=== PATIENT | female | born 1990 | race Caucasian/White ===

== ENCOUNTER 2016-09-24 22:35 | Emergency (ER) | payer MEDICAID ==
[2016-09-24 22:45] VITALS: RESP 18; O2SAT 100
[2016-09-24] MEDS ORDERED: Sodium Chloride 0.9% 1,000 ML IV ONE (23:41)
--- NOTE | 2016-09-24 23:41 | C.PDOC ---
History Of Present Illness Patient complains of headache, worsening over the last 2 days. No f/c/n/v. Dull throbbing ache. No visual changes. Occasionally has some ear discomfort. Time Seen by Provider: 09/24/16 23:38 Chief Complaint (Nursing): Headache History Per: Patient History/Exam Limitations: no limitations Onset/Duration Of Symptoms: Days Current Symptoms Are (Timing): Still Present Severity: Moderate Pain Scale Rating Of: 4 Quality: Dull, Aching Preceeding Symptoms: Known Migraine Symptoms Associated Symptoms: denies: Photophobia, Blurred Vision, Nausea Recent travel outside of the [place]: No Additional History Per: Family Past Medical History Reviewed: Historical Data, Nursing Documentation, Vital Signs Vital Signs: Last Vital Signs Temp 97.9 F 09/24/16 22:42 Pulse 76 09/24/16 22:42 Resp 18 09/24/16 22:42 BP 118/81 09/24/16 22:42 Pulse Ox 100 09/24/16 23:46 - Medical History PMH: Gastritis Surgical History: Denies: Appendectomy Family History: States: No Known Family Hx - Social History Hx Tobacco Use: No Hx Alcohol Use: No Hx Substance Use: No - Immunization History Hx Tetanus Toxoid Vaccination: No Hx Influenza Vaccination: No Hx Pneumococcal Vaccination: No Review Of Systems Constitutional: Negative for: Fever, Chills Eyes: Negative for: Vision Change ENT: Negative for: Throat Pain Cardiovascular: Negative for: Chest Pain, Palpitations Respiratory: Negative for: Shortness of Breath Gastrointestinal: Negative for: Nausea, Vomiting, Abdominal Pain Genitourinary: Negative for: Dysuria Musculoskeletal: Negative for: Back Pain Skin: Negative for: Rash, Lesions, Jaundice, Bruising Neurological: Positive for: Headache. Negative for: Weakness Psych: Negative for: Anxiety Physical Exam - Physical Exam Appears: Non-toxic, No Acute Distress Skin: Warm, Dry Head: Normacephalic Eye(s): bilateral: Normal Inspection, PERRL, EOMI Oral Mucosa: Moist Neck: Trachea Midline, Supple Chest: Symmetrical Cardiovascular: Rhythm Regular Respiratory: No Rales, No Rhonchi, No Wheezing Extremity: Normal ROM Extremity: Bilateral: Atraumatic Neurological/Psych: Oriented x3, Normal Speech, Normal Cognition Gait: Steady ED Course And Treatment - Laboratory Results Result Diagrams: 09/25/16 00:14 09/25/16 00:14 O2 Sat by Pulse Oximetry: 100 Pulse Ox Interpretation: Normal Reevaluation Time: 01:22 Reassessment Condition: Improved Disposition Counseled Patient/Family Regarding: Studies Performed, Diagnosis, Need For Followup, Rx Given - Disposition Referrals: [facility] [Outside] [facility] [Outside] Disposition: HOME/ ROUTINE Disposition Time: 23:41 Condition: FAIR Additional Instructions: May eat during the day if the headache returns Prescriptions: Fluticasone Nasal [Flonase] 1 spr NS DAILY #1 spr Ketorolac Tromethamine [Toradol] 10 mg PO TID PRN #15 tab PRN Reason: Pain, Moderate (4-7) Ondansetron ODT [Zofran ODT] 1 odt PO BID PRN #6 odt PRN Reason: Nausea/Vomiting Instructions: Migraine Headache (ED) - Clinical Impression Clinical Impression: Headache, Migraine
[2016-09-25 00:24] LABS: BASO # 0.1 K/uL (0.0-0.2); BASO % 0.6 % (0.0-2.0); EOS # 0.1 K/uL (0.0-0.7); HEMATOCRIT 39.5 % (34.0-47.0); LYMPH # 2.8 K/uL (1.0-4.3); LYMPH % 27.9 % (20.0-40.0); MEAN CELL VOLUME 82.7 fL (81.0-99.0); MEAN CORPUSCULAR HEMOGLOBIN 28.5 pg (27.0-31.0); MEAN CORPUSCULAR HGB CONC 34.5 g/dL (33.0-37.0); MONO # 0.5 K/uL (0.0-0.8); MONO % 5.3 % (0.0-10.0); RED CELL DISTRIBUTION WIDTH 12.7 % (11.5-14.5); WHITE BLOOD COUNT 10.1 K/uL (4.8-10.8)
[2016-09-25 00:32] LABS: CHLORIDE 100 mmol/L (98-107); POTASSIUM 3.8 mmol/L (3.6-5.2); SODIUM 140 mmol/L (132-148)
[2016-09-25 00:35] LABS: BLOOD UREA NITROGEN 10 mg/dL (7-17); CARBON DIOXIDE 27 mmol/L (22-30); GFR AFRICAN-AMERICAN > 60
[2016-09-25 00:36] LABS: CALCIUM 9.7 mg/dl (8.6-10.4); GLUCOSE,RANDOM 95 mg/dL (65-105)
[2016-09-25 00:47] LABS: RBC URINE < 1 /hpf (0-3); URINE BILIRUBIN NEGATIVE (NEGATIVE); URINE BLOOD NEGATIVE (NEGATIVE); URINE COLOR Yellow (YELLOW); URINE GLUCOSE (UA) NORMAL (Normal); URINE KETONE NEGATIVE (NEGATIVE); URINE LEUKOCYTE ESTERASE NEG Leu/uL (Negative); URINE PROTEIN NEGATIVE (NEGATIVE); URINE UROBILINOGEN NORMAL mg/dL (0.2-1.0); WBC URINE < 1 /hpf (0-5)
[2016-09-25 01:36] VITALS: BP 124/74; PULSE 75; TEMP 98.2
== END 2016-09-25 02:00 | disposition home or self-care (01) ==
LOC: C.ER 22:35
DX: G43.909 Migraine, unspecified, not intractable, without status migrainosus (principal)
CPT/HCPCS: 80048; 81001; 84703; 85025; 96360; 96374; 99284; J1885; J7040

== ENCOUNTER 2017-05-19 21:18 | Emergency (ER) | payer MEDICAID ==
[2017-05-19] MEDS ORDERED: Iodixanol 320 mg/ml 150 ml Bottle IV ONE (22:12)
[2017-05-19 22:20] LABS: BASO % 0.4 % (0.0-2.0); EOS # 0.4 K/uL (0.0-0.7); EOS % 5.1 % (0.0-4.0); HEMOGLOBIN 12.8 g/dL (11.0-16.0); LYMPH # 3.8 K/uL (1.0-4.3); LYMPH % 44.3 % (20.0-40.0); MEAN CELL VOLUME 83.1 fL (81.0-99.0); MEAN CORPUSCULAR HEMOGLOBIN 28.3 pg (27.0-31.0); MEAN PLATELET VOLUME 7.3 fL (7.2-11.7); MONO # 0.5 K/uL (0.0-0.8); MONO % 5.8 % (0.0-10.0); NEUT # 3.9 K/uL (1.8-7.0); NEUT % 44.4 % (50.0-75.0); RBC 4.54 Mil/uL (3.80-5.20); WHITE BLOOD COUNT 8.7 K/uL (4.8-10.8)
[2017-05-19 22:31] LABS: INR 1.1
[2017-05-19 22:32] LABS: HCG,QUALITATIVE URINE NEGATIVE (NEGATIVE); SQUAMOUS EPITHIAL 6 /hpf (0-5); URINE BACTERIA OCC (<OCC); URINE BILIRUBIN NEGATIVE (NEGATIVE); URINE BLOOD NEGATIVE (NEGATIVE); URINE CLARITY Clear (Clear); URINE COLOR Yellow (YELLOW); URINE GLUCOSE (UA) NORMAL (Normal); URINE LEUKOCYTE ESTERASE NEG Leu/uL (Negative); URINE NITRATE NEGATIVE (NEGATIVE); URINE PROTEIN NEGATIVE (NEGATIVE); URINE UROBILINOGEN NORMAL mg/dL (0.2-1.0)
[2017-05-19 22:34] LABS: ALB/GLOB RATIO 1.1 (1.0-2.1); ALBUMIN 4.1 g/dL (3.5-5.0); ALT/SGPT 42 U/L (9-52); AST/SGOT 29 U/L (14-36); BLOOD UREA NITROGEN 10 mg/dL (7-17); GFR AFRICAN-AMERICAN > 60; GFR NON-AFRICAN AMERICAN > 60; LIPASE 128 U/L (23-300)
[2017-05-19] MEDS ORDERED: Morphine 4 MG/ML VIAL ONE (22:35)
[2017-05-19 22:51] VITALS: O2SAT 100
--- NOTE | 2017-05-20 00:15 | CT ---
EXAM: CT Abdomen and Pelvis With Intravenous Contrast CLINICAL HISTORY: 26 years old, female; Pain; Abdominal pain; Prior surgery; Surgery type: Ovary cyst; Patient HX: 02-26-14; Additional info: Rlq pain, R/O appendicitis TECHNIQUE: Axial computed tomography images of the abdomen and pelvis with intravenous contrast. All CT scans at this facility use one or more dose reduction techniques, viz.: automated exposure control; ma/kV adjustment per patient size (including targeted exams where dose is matched to indication; i.e. head); or iterative reconstruction technique. Coronal and sagittal reformatted images were created and reviewed. CONTRAST: 100 mL of [id number] administered intravenously. COMPARISON: CT - ABD PELVIS IV CONTRAST ONLY 2014-02-26 20:19 FINDINGS: Lower thorax: No acute findings. ABDOMEN: Liver: No acute abnormality as visualized. Gallbladder and bile ducts: No acute abnormality as visualized. Pancreas: No acute abnormality as visualized. Spleen: No splenomegaly. Adrenals: No acute abnormality as visualized. Kidneys and ureters: No acute abnormality as visualized. Symmetric emhancement. No hydronephrosis. Stomach and bowel: Limited evaluation without enteric contrast. No definitive focus of mucosal thickening. Appendix: No findings to suggest acute appendicitis. PELVIS: Bladder: No acute abnormality as visualized. Reproductive: Question congenital anomaly of the uterus, arcuate appearance. Endometrial canal appears prominent. Question large fibroid. Cystic appearance to right ovary. Left ovary not clearly identified. ABDOMEN and PELVIS: Intraperitoneal space: No free air. No significant fluid collection. Bones: Degenerative changes. Vasculature: No acute abnormality as visualized. No abdominal aortic aneurysm. Lymph nodes: Shotty nodes. IMPRESSION: Question congenital anomaly of the uterus, arcuate appearance, uterus is deviated to the right. Endometrial canal appears prominent. Question large fibroid. Cystic appearance to right ovary. Left ovary not clearly identified. Followup evaluation with dedicated ultrasound recommended.
--- NOTE | 2017-05-20 00:51 | C.PDOC ---
History Of Present Illness Patient presents to ED c/o constant RLQ pain since yesterday. Pain is nonradiating, and not associated with nausea/vomiting/diarrhea, dysuria/ hematuria, fever. Patient had PMHx of gastritis and . Time Seen by Provider: 05/19/17 21:32 Chief Complaint (Nursing): Abdominal Pain History Per: Patient, Family ( ) History/Exam Limitations: language barrier Onset/Duration Of Symptoms: Days (2) Current Symptoms Are (Timing): Still Present Severity: Moderate Location Of Pain/Discomfort: RLQ Radiation Of Pain To:: None Quality Of Discomfort: "Pain" Associated Symptoms: denies: Fever, Chills, Nausea, Vomiting, Diarrhea, Urinary Symptoms Past Medical History Reviewed: Historical Data, Nursing Documentation, Vital Signs Vital Signs: Last Vital Signs Temp 98.7 F 05/20/17 01:28 Pulse 80 05/20/17 01:28 Resp 18 05/20/17 01:28 BP 119/79 05/20/17 01:28 Pulse Ox 100 05/20/17 01:45 - Medical History PMH: Gastritis Surgical History: Denies: Appendectomy Other Surgeries: Family History: States: No Known Family Hx - Social History Hx Tobacco Use: No Hx Alcohol Use: No Hx Substance Use: No - Immunization History Hx Tetanus Toxoid Vaccination: No Hx Influenza Vaccination: Yes Hx Pneumococcal Vaccination: No Review Of Systems Except As Marked, All Systems Reviewed And Found Negative. Constitutional: Negative for: Fever, Chills Cardiovascular: Negative for: Chest Pain, Palpitations Respiratory: Negative for: Cough, Shortness of Breath Gastrointestinal: Positive for: Abdominal Pain. Negative for: Nausea, Vomiting , Diarrhea Genitourinary: Negative for: Dysuria, Hematuria, Vaginal Discharge, Vaginal Bleeding Skin: Negative for: Rash Physical Exam - Physical Exam Appears: Well, Non-toxic, In Acute Distress (in moderate pain) Eye(s): bilateral: Normal Inspection Oral Mucosa: Moist Cardiovascular: Rhythm Regular Respiratory: Normal Breath Sounds, No Rales, No Rhonchi, No Wheezing Gastrointestinal/Abdominal: Bowel Sounds, Soft, Tenderness ((+) RLQ TTP, (-) Rovsig's, (-) Malloy's), No Distention, No Guarding, No Rebound, Other ( surgical scar at/inferior to umbilicus) Back: Normal Inspection, No CVA Tenderness Neurological/Psych: Oriented x3 ED Course And Treatment - Laboratory Results Result Diagrams: 05/19/17 22:17 05/19/17 22:17 O2 Sat by Pulse Oximetry: 100 (RA) Pulse Ox Interpretation: Normal - CT Scan/US TRANSVAGINAL US Other Rad Studies (CT/US): Read By Radiologist, Radiology Report Reviewed CT/US Interpretation: EXAM: US Pelvis. CLINICAL HISTORY: 26 years old, female ; Pain; Pelvic pain; Additional info: Rlq pain, R/O ovarian torsion. TECHNIQUE : Real-time transabdominal and transvaginal pelvic ultrasound (complete) with image documentation. COMPARISON: No relevant prior studies available. FINDINGS: Uterus/cervix: Congenital uterine anomaly. Question bicornuate uterus. Right endometrial stripe is. thickened, measured at 1.7 cm. Left endometrium is not visualized due to fibroid measured. approximately 4.6 cm in maximal dimension. Right ovary: 4.3 x 1.9 x 3.2 cm. 2 cm right ovarian cyst, irregular appearance, question recent. rupture. Right ovarian Doppler flow noted. Left ovary: Not visualized. Free fluid: Small amount of free fluid in the cul-de-sac. IMPRESSION: Congenital uterine anomaly. Question bicornuate uterus. Right endometrial stripe is thickened,. measured at 1.7 cm. Left endometrium is not visualized due to fibroid measured approximately 4.6. cm in maximal dimension. 2 cm right ovarian cyst, irregular appearance, question recent rupture. Right ovarian Doppler flow. noted. Left ovary not visualized. [facility]. [facility]. Final Radiology Report [id number]. Name: WAQAS GUAMAN Age: 26Years F Date: 05/19/2017. : 1990. Study: US PELVIS COMP NON-OB Requesting Physician: SALOMÓN TORRES. Images: 180. Addl Studies: [id number] - US TRANSVAGINAL NON-OB (1). Provided Clinical History: rlq pain, r/o ovarian torsion. CONFIDENTIALITY STATEMENT. This transmission is confidential and is intended to be a privileged communication. It is intended only for the use of the addressee. Access to this. message by anyone else is unauthorized. If you are not the intended recipient, any disclosure, copying, distribution or any action taken, or omitted to. be taken in reliance on it is prohibited and may be unlawful. If you received this communication in error, please notify us by telephone, so that return. of this document to us can be arranged. Page 2 of 2. MRI can provide more sensitive evaluation of the uterus. Thank you for allowing us to participate in the care of your patient. Dictated and Authenticated by: Halle Lepe MD. 05/20/2017 1:19 AM Eastern Time ([place] & [place]) CT ABD/PELVIS Other Rad Studies (CT/US): Read By Radiologist, Radiology Report Reviewed CT/US Interpretation: EXAM: CT Abdomen and Pelvis With Intravenous Contrast. CLINICAL HISTORY: 26 years old, female; Pain; Abdominal pain; Prior surgery; Surgery type: Ovary cyst; Patient HX: . 3114; Additional info: Rlq pain, R/ O appendicitis. TECHNIQUE: Axial computed tomography images of the abdomen and pelvis with intravenous contrast. All CT. scans at this facility use one or more dose reduction techniques, viz.: automated exposure control;. ma/kV adjustment per patient size (including targeted exams where dose is matched to indication; i.e. head); or iterative reconstruction technique. Coronal and sagittal reformatted images were created and reviewed. CONTRAST: 100 mL of [id number] administered intravenously. COMPARISON: CT - ABD PELVIS IV CONTRAST ONLY 2014-02-26 20:19. FINDINGS: Lower thorax: No acute findings. ABDOMEN: Liver: No acute abnormality as visualized. Gallbladder and bile ducts : No acute abnormality as visualized. Pancreas: No acute abnormality as visualized. Spleen: No splenomegaly. [facility]. [facility]. Final Radiology Report [id number]. Name: WAQAS GUAMAN Age: 26Years F Date: . SSN: [id number] : 1990. Study: CT ABDOMEN/ PELVIS W Requesting Physician: SALOMÓN TORRES. Images : 624. Addl Studies: Provided Clinical History: rlq pain, r/o appendicitis. CONFIDENTIALITY STATEMENT. This transmission is confidential and is intended to be a privileged communication. It is intended only for the use of the addressee. Access to this. message by anyone else is unauthorized. If you are not the intended recipient, any disclosure, copying, distribution or any action taken, or omitted to. be taken in reliance on it is prohibited and may be unlawful. If you received this communication in error, please notify us by telephone, so that return. of this document to us can be arranged. Page 2 of 3. Adrenals: No acute abnormality as visualized. Kidneys and ureters: No acute abnormality as visualized. Symmetric emhancement. No. hydronephrosis. Stomach and bowel: Limited evaluation without enteric contrast. No definitive focus of mucosal. thickening. Appendix: No findings to suggest acute appendicitis. PELVIS: Bladder: No acute abnormality as visualized. Reproductive: Question congenital anomaly of the uterus, arcuate appearance. Endometrial canal. appears prominent. Question large fibroid. Cystic appearance to right ovary. Left ovary not clearly. identified. ABDOMEN and PELVIS: Intraperitoneal space: No free air. No significant fluid collection. Bones: Degenerative changes. Vasculature: No acute abnormality as visualized. No abdominal aortic aneurysm. Lymph nodes: Shotty nodes. IMPRESSION: Question congenital anomaly of the uterus, arcuate appearance, uterus is deviated to the right. Endometrial canal appears prominent. Question large fibroid. Cystic appearance to right ovary. Left. ovary not clearly identified. Followup evaluation with dedicated ultrasound recommended. Thank you for allowing us to participate in the care of your patient. Dictated and Authenticated by: Halle Lepe MD. [facility]. [facility]. Final Radiology Report [id number]. Name: WAQAS GUAMAN Age: 26Years F Date: . SSN: [id number] : 1990. Study: CT ABDOMEN/ PELVIS W Requesting Physician: SALOMÓN TORRES. Images : 624. Addl Studies: Provided Clinical History: rlq pain, r/o appendicitis. CONFIDENTIALITY STATEMENT. This transmission is confidential and is intended to be a privileged communication. It is intended only for the use of the addressee. Access to this. message by anyone else is unauthorized. If you are not the intended recipient, any disclosure, copying, distribution or any action taken, or omitted to. be taken in reliance on it is prohibited and may be unlawful. If you received this communication in error, please notify us by telephone, so that return. of this document to us can be arranged. Page 3 of 3. 05/20/2017 12:15 AM Eastern Time ([place] & [place]) Progress Note: Blood work, UA, CT scan abd/pelvis ordered and reviewed. Patient given IV NS bolus, IV morphine. CT scan shows abnormal uterus/ovary - transvaginal US ordered. Disposition Counseled Patient/Family Regarding: Studies Performed, Diagnosis, Need For Followup, Rx Given - Disposition Referrals: [facility] [Outside] Disposition: HOME/ ROUTINE Disposition Time: 01:50 Condition: STABLE Additional Instructions: FOLLOW UP WITH INFORMATION TECHNOLOGY TEACHER WITHIN 1 WEEK RETURN TO EMERGENCY ROOM IF SYMPTOMS WORSEN Prescriptions: Naproxen [Naprosyn] 1 tab PO BID PRN #25 tab PRN Reason: Pain Instructions: Ovarian Cyst (ED) Forms: [employer] (Tongan) Print Language: LUXEMBOURGER - POA Present On Arrival: None - Clinical Impression Clinical Impression: Ruptured ovarian cyst, Fibroid, uterine
--- NOTE | 2017-05-20 01:19 | US ---
EXAM: US Pelvis CLINICAL HISTORY: 26 years old, female; Pain; Pelvic pain; Additional info: Rlq pain, R/O ovarian torsion TECHNIQUE: Real-time transabdominal and transvaginal pelvic ultrasound (complete) with image documentation. COMPARISON: No relevant prior studies available. FINDINGS: Uterus/cervix: Congenital uterine anomaly. Question bicornuate uterus. Right endometrial stripe is thickened, measured at 1.7 cm. Left endometrium is not visualized due to fibroid measured approximately 4.6 cm in maximal dimension. Right ovary: 4.3 x 1.9 x 3.2 cm. 2 cm right ovarian cyst, irregular appearance, question recent rupture. Right ovarian Doppler flow noted. Left ovary: Not visualized. Free fluid: Small amount of free fluid in the cul-de-sac. IMPRESSION: Congenital uterine anomaly. Question bicornuate uterus. Right endometrial stripe is thickened, measured at 1.7 cm. Left endometrium is not visualized due to fibroid measured approximately 4.6 cm in maximal dimension. 2 cm right ovarian cyst, irregular appearance, question recent rupture. Right ovarian Doppler flow noted. Left ovary not visualized. MRI can provide more sensitive evaluation of the uterus.
[2017-05-20 01:28] VITALS: BP 119/79; PULSE 80; RESP 18; TEMP 98.7
== END 2017-05-20 02:03 | disposition home or self-care (01) ==
LOC: C.ER 21:18
DX: N83.299 Other ovarian cyst, unspecified side (principal); D25.9 Leiomyoma of uterus, unspecified
CPT/HCPCS: 74177; 76830; 76856; 80053; 81001; 83690; 84702; 84703; 85025; 85610; 85730; 86850; 86900; 96374; 96375; 99285; J1885; J2270; Q9967

== ENCOUNTER 2017-06-30 19:48 | Emergency (ER) | payer MEDICAID ==
[2017-06-30] MEDS ORDERED: Sodium Chloride 0.9% 1,000 ML IV ONE (20:05)
--- NOTE | 2017-06-30 20:07 | C.PDOC ---
History Of Present Illness 27 yr old female presents to the ER with complaints of on and off upper abdominal pain for the past 2 weeks which radiates to the right shoulder. Patient states the pain has became worse over the past 24hrs. Patient denies prior history of stones, gallbladder, fever, chills, chest pain, SOB, nausea, vomiting, dysuria, incontinence, weakness or numbness. Patient is currently on her menstrual period. Time Seen by Provider: 06/30/17 20:03 Chief Complaint (Nursing): Fever History Per: Patient History/Exam Limitations: no limitations Onset/Duration Of Symptoms: Intermittent Episodes (2 weeks), Worse Since (24hrs) Current Symptoms Are (Timing): Still Present Past Medical History Reviewed: Historical Data, Nursing Documentation, Vital Signs Vital Signs: Last Vital Signs Temp 100.2 F H 07/01/17 00:10 Pulse 96 H 07/01/17 00:10 Resp 18 07/01/17 00:10 BP 115/80 07/01/17 00:10 Pulse Ox 99 07/01/17 00:26 - Medical History PMH: Gastritis Family History: States: No Known Family Hx Denies: Unknown Family Hx - Social History Hx Tobacco Use: No Hx Alcohol Use: No Hx Substance Use: No - Immunization History Hx Tetanus Toxoid Vaccination: No Hx Influenza Vaccination: Yes Hx Pneumococcal Vaccination: No Review Of Systems Except As Marked, All Systems Reviewed And Found Negative. Constitutional: Negative for: Fever, Chills Cardiovascular: Negative for: Chest Pain Respiratory: Negative for: Shortness of Breath Gastrointestinal: Positive for: Abdominal Pain (upper). Negative for: Nausea, Vomiting Genitourinary: Negative for: Dysuria, Incontinence Neurological: Negative for: Weakness, Numbness Physical Exam - Physical Exam Appears: Non-toxic, No Acute Distress Skin: Warm, Dry Oral Mucosa: Moist Cardiovascular: Rhythm Regular, Other (+ accelerated, resting tachy) Respiratory: Normal Breath Sounds, No Rales, No Rhonchi, No Stridor, No Wheezing Gastrointestinal/Abdominal: Tenderness (RUQ), No Guarding, No Rebound, Other (+ Malloy Signs) Back: CVA Tenderness (R sided) Extremity: Normal ROM, No Swelling Neurological/Psych: Oriented x3, Normal Speech ED Course And Treatment - Laboratory Results Result Diagrams: 06/30/17 20:18 06/30/17 20:18 Lab Interpretation: Abnormal (c/w UTI) O2 Sat by Pulse Oximetry: 99 (RA) Pulse Ox Interpretation: Normal - CT Scan/US US - Abdomen Other Rad Studies (CT/US): Read By Radiologist, Radiology Report Reviewed CT/US Interpretation: EXAM:CT abdomen-c/w pyelonephritis. US Abdomen Limited, Right Upper Quadrant-neg for GB pathology. EXAM DATE/TIME: Exam ordered 2017 8:05 PM. CLINICAL HISTORY: 27 years old, female; Pain; Abdominal pain; Other: Ruq; Additional info: Ruq pain. TECHNIQUE: Real-time ultrasound of the right upper quadrant with image documentation. COMPARISON: CT - ABD PELVIS IV CONTRAST ONLY 2017-05-19 23:01. FINDINGS: Liver: The liver measures 16.5 cm in craniocaudal span. There is normal blood flow direction in the. main portal vein. Normal blood flow is noted within the middle hepatic vein on color Doppler and. pulsed Doppler examination. Gallbladder: Unremarkable. No gallstones. Common bile duct: The common bile duct measures 5 mm. No stones. No dilation. Pancreas: Unremarkable as visualized. Right kidney: Right kidney measures 14.3 x 4.7 x 5.4 cm. No stones. No hydronephrosis. IMPRESSION: No acute findings. CT - Abd & Pelvis Other Rad Studies (CT/US): Read By Radiologist, Radiology Report Reviewed Medical Decision Making Medical Decision Making: IMPRESSION: Acute cholecystitis PLAN: * CT - Abd & Pelvis * US - Abdomen * Labs * Morphine IVP * Zofran IVP * Sodium Chloride IV Disposition - Disposition Referrals: [facility] [Outside] FAMILY PROVIDER,NO [Family Provider] - Disposition: HOME/ ROUTINE Disposition Time: 00:30 Condition: FAIR Prescriptions: Ciprofloxacin HCl [Cipro] 500 mg PO BID #20 tab oxyCODONE/Acetaminophen [Percocet 5/325 mg Tab] 1 ea PO QID PRN #12 tab PRN Reason: Pain, Mild (1-3) Instructions: Kidney Infection Forms: [employer] (Spanish) Print Language: SYRIAC - Clinical Impression Clinical Impression: Urinary tract infection, Pyelonephritis - Scribe Statement The provider has reviewed the documentation as recorded by the Jacquelineibe Paola Oconnor Provider Attestation: All medical record entries made by the Jacquelineibjames were at my direction and personally dictated by me. I have reviewed the chart and agree that the record accurately reflects my personal performance of the history, physical exam, medical decision making, and the department course for this patient. I have also personally directed, reviewed, and agree with the discharge instructions and disposition.
[2017-06-30] MEDS ORDERED: Morphine 4 MG/ML VIAL ONE (20:15)
[2017-06-30] MEDS ORDERED: Sodium Chloride 0.9% 1,000 ML ONE (20:16)
[2017-06-30 20:22] LABS: BASO % 0.2 % (0.0-2.0); EOS % 0.1 % (0.0-4.0); HEMOGLOBIN 12.2 g/dL (11.0-16.0); LYMPH # 1.4 K/uL (1.0-4.3); LYMPH % 12.5 % (20.0-40.0); MEAN CELL VOLUME 81.3 fL (81.0-99.0); MEAN CORPUSCULAR HEMOGLOBIN 28.3 pg (27.0-31.0); MEAN CORPUSCULAR HGB CONC 34.8 g/dL (33.0-37.0); MEAN PLATELET VOLUME 7.2 fL (7.2-11.7); MONO # 0.9 K/uL (0.0-0.8); MONO % 8.2 % (0.0-10.0); NEUT # 8.9 K/uL (1.8-7.0); RBC 4.31 Mil/uL (3.80-5.20); RED CELL DISTRIBUTION WIDTH 12.8 % (11.5-14.5); WHITE BLOOD COUNT 11.3 K/uL (4.8-10.8)
[2017-06-30 20:30] LABS: INR 1.3
[2017-06-30 20:33] LABS: ALB/GLOB RATIO 0.9 (1.0-2.1); ALBUMIN 4.2 g/dL (3.5-5.0); ALT/SGPT 33 U/L (9-52); AST/SGOT 29 U/L (14-36); BLOOD UREA NITROGEN 7 mg/dL (7-17); CALCIUM 9.6 mg/dl (8.6-10.4); GFR AFRICAN-AMERICAN > 60; GFR NON-AFRICAN AMERICAN > 60; LIPASE 69 U/L (23-300)
[2017-06-30 20:35] LABS: PROTHROMBIN TIME 14.7 SECONDS (9.7-12.2)
--- NOTE | 2017-06-30 21:04 | US ---
EXAM: US Abdomen Limited, Right Upper Quadrant EXAM DATE/TIME: Exam ordered 06/30/2017 8:05 PM CLINICAL HISTORY: 27 years old, female; Pain; Abdominal pain; Other: Ruq; Additional info: Ruq pain TECHNIQUE: Real-time ultrasound of the right upper quadrant with image documentation. COMPARISON: CT - ABD PELVIS IV CONTRAST ONLY 2017-05-19 23:01 FINDINGS: Liver: The liver measures 16.5 cm in craniocaudal span. There is normal blood flow direction in the main portal vein. Normal blood flow is noted within the middle hepatic vein on color Doppler and pulsed Doppler examination. Gallbladder: Unremarkable. No gallstones. Common bile duct: The common bile duct measures 5 mm. No stones. No dilation. Pancreas: Unremarkable as visualized. Right kidney: Right kidney measures 14.3 x 4.7 x 5.4 cm. No stones. No hydronephrosis. IMPRESSION: No acute findings.
[2017-06-30] MEDS ORDERED: HYDROmorphone 1 mg/ml ISec IVP STA (21:46)
[2017-06-30 21:52] LABS: SQUAMOUS EPITHIAL 6 /hpf (0-5); URINE BACTERIA MOD (<OCC); URINE BILIRUBIN NEGATIVE (NEGATIVE); URINE BLOOD 3+ (NEGATIVE); URINE CLARITY Hazy (Clear); URINE COLOR Red (YELLOW); URINE GLUCOSE (UA) 1+ mg/dL (Normal); URINE LEUKOCYTE ESTERASE 2+ Leu/uL (Negative); URINE NITRATE NEGATIVE (NEGATIVE); URINE PROTEIN 2+ mg/dL (NEGATIVE); URINE UROBILINOGEN NORMAL mg/dL (0.2-1.0)
[2017-06-30] MEDS ORDERED: HYDROmorphone 1 mg/ml ISec ONE (22:01)
[2017-06-30] MEDS ORDERED: Iodixanol 320 MG/ML 100 ML BOTTLE IV ONE (22:15)
[2017-06-30] MEDS ORDERED: cefTRIAXone IV 1 gm in Dextros 50 ML IVPB ONE (23:48)
[2017-07-01 00:11] VITALS: BP 115/80; PULSE 96; RESP 18; TEMP 100.2
--- NOTE | 2017-07-01 00:13 | CT ---
EXAM: CT Abdomen and Pelvis With Intravenous Contrast CLINICAL HISTORY: 27 years old, female; Pain; Abdominal pain; Generalized TECHNIQUE: Axial computed tomography images of the abdomen and pelvis with intravenous contrast. All CT scans at this facility use one or more dose reduction techniques, viz.: automated exposure control; ma/kV adjustment per patient size (including targeted exams where dose is matched to indication; i.e. head); or iterative reconstruction technique. Coronal and sagittal reformatted images were created and reviewed. CONTRAST: 100 mL of [id number] administered intravenously. COMPARISON: CT - ABD PELVIS IV CONTRAST ONLY 2017-05-19 23:01 FINDINGS: Lower thorax: Minimal atelectasis. ABDOMEN: Liver: Unremarkable. No mass. Gallbladder and bile ducts: No calcified stones. No ductal dilation. Pancreas: Apparent annular pancreas. No ductal dilation. Spleen: No splenomegaly. Adrenals: No mass. Kidneys and ureters: Minimal stranding about RIGHT kidney. Few scattered ill-defined peripheral areas of decreased attenuation within right kidney. No hydronephrosis. Apparent minimal urothelial enhancement of renal pelvis and right ureter. Stomach and bowel: No definite mural thickening. No obstruction. Appendix: Normal caliber. No inflammation. PELVIS: Bladder: Unremarkable. Reproductive: 4.8 x 4.2 x 4.9 cm uterine fundal mass. ABDOMEN and PELVIS: Intraperitoneal space: No significant fluid collection. No free air. Bones/joints: No acute fracture. Soft tissues: Laparotomy scar. Vasculature: Unremarkable. No aneurysm. Lymph nodes: No pathologically enlarged lymph nodes. IMPRESSION: 1. Findings compatible with right pyelonephritis/ureteritis. Correlate with urinalysis to exclude infection. 2. Probable fibroid uterus. 3. Incidental/non-acute findings are described above.
[2017-07-01 00:27] VITALS: O2SAT 99
== END 2017-07-01 00:39 | disposition home or self-care (01) ==
LOC: C.ER 19:48
DX: N39.0 Urinary tract infection, site not specified (principal); N12 Tubulo-interstitial nephritis, not specified as acute or chronic
CPT/HCPCS: 74177; 76705; 80053; 81001; 82948; 83690; 84703; 85025; 85610; 85730; 87040; 96361; 96365; 96375; 99285; J0696; J1170; J2270; J2405; J7040; Q9967

== ENCOUNTER 2018-09-03 22:53 | Emergency (ER) | payer MEDICAID, OTHER ==
[2018-09-03 23:29] VITALS: RESP 20; O2SAT 100
[2018-09-03] MEDS ORDERED: Sodium Chloride 0.9% 1,000 ML IV ONE (23:38)
[2018-09-03] MEDS ORDERED: Sodium Chloride 0.9% 1,000 ML ONE (23:50)
[2018-09-03 23:59] LABS: BASO # 0.1 K/uL (0.0-0.2); BASO % 0.7 % (0.0-2.0); EOS # 0.2 K/uL (0.0-0.7); EOS % 3.2 % (0.0-4.0); HEMOGLOBIN 13.1 g/dL (11.0-16.0); LYMPH # 3.5 K/uL (1.0-4.3); LYMPH % 50.1 % (20.0-40.0); MEAN CELL VOLUME 80.2 fL (81.0-99.0); MEAN CORPUSCULAR HEMOGLOBIN 27.8 pg (27.0-31.0); MEAN CORPUSCULAR HGB CONC 34.7 g/dL (33.0-37.0); MEAN PLATELET VOLUME 7.7 fL (7.2-11.7); MONO # 0.5 K/uL (0.0-0.8); MONO % 6.9 % (0.0-10.0); NEUT # 2.7 K/uL (1.8-7.0); NEUT % 39.1 % (50.0-75.0); NRBC % 0.2 % (0.0-2.0); RBC 4.71 Mil/uL (3.80-5.20); RED CELL DISTRIBUTION WIDTH 13.6 % (11.5-14.5)
[2018-09-04 00:24] LABS: ALB/GLOB RATIO 1.1 (1.0-2.1); ALBUMIN 4.8 g/dL (3.5-5.0); ALT/SGPT 22 U/L (9-52); AST/SGOT 25 U/L (14-36); BLOOD UREA NITROGEN 9 mg/dL (7-17); GFR NON-AFRICAN AMERICAN > 60
[2018-09-04] MEDS ORDERED: Potassium Chloride 20 mEq/15 ml LIQ UD PO STA (01:06)
--- NOTE | 2018-09-04 01:12 | C.PDOC ---
History Of Present Illness 28 year old female presents with headache and nausea starting tonight. Denies fever or chills. Chief Complaint (Nursing): Headache History Per: Patient History/Exam Limitations: no limitations Onset/Duration Of Symptoms: Hrs Current Symptoms Are (Timing): Still Present Preceeding Symptoms: None Associated Symptoms: Nausea Recent travel outside of the [place]: No Past Medical History Reviewed: Historical Data, Nursing Documentation, Vital Signs Vital Signs: Last Vital Signs Temp 98 F 09/03/18 23:23 Pulse 70 09/03/18 23:23 Resp 20 09/03/18 23:23 BP 139/80 09/03/18 23:23 Pulse Ox 100 09/03/18 23:23 Primary Care Provider: Marybeth Sauceda - Medical History PMH: Gastritis Surgical History: Denies: Appendectomy Family History: States: Unknown Family Hx - Social History Hx Tobacco Use: No Hx Alcohol Use: No Hx Substance Use: No - Immunization History Hx Tetanus Toxoid Vaccination: No Hx Influenza Vaccination: Yes Hx Pneumococcal Vaccination: No Review Of Systems Constitutional: Negative for: Fever, Chills Cardiovascular: Negative for: Chest Pain, Palpitations Respiratory: Negative for: Cough, Shortness of Breath Gastrointestinal: Positive for: Nausea. Negative for: Vomiting Neurological: Positive for: Headache. Negative for: Weakness, Numbness Physical Exam - Physical Exam Appears: Non-toxic Skin: Normal Color, Warm Head: Atraumatic, Normacephalic Eye(s): bilateral: Normal Inspection, PERRL, EOMI Oral Mucosa: Moist Neck: Normal, No Midline Cervical Tenderness, No Paracervical Tenderness, Supple Chest: Symmetrical, No Tenderness Cardiovascular: Rhythm Regular Respiratory: Normal Breath Sounds, No Rales, No Rhonchi, No Wheezing Gastrointestinal/Abdominal: Soft, No Tenderness Back: No Vertebral Tenderness, No Paraspinal Tenderness Extremity: Normal ROM (x4) Neurological/Psych: Oriented x3, Normal Speech, Normal Motor, Normal Sensation ED Course And Treatment - Laboratory Results Result Diagrams: 09/03/18 23:56 09/03/18 23:56 Lab Results: Total Bilirubin 0.5 mg/dL (0.2-1.3) 09/03/18 23:56 AST 25 U/L (14-36) 09/03/18 23:56 ALT 22 U/L (9-52) 09/03/18 23:56 Alkaline Phosphatase 89 U/L (38-126) 09/03/18 23:56 Total Protein 9.1 g/dL (6.3-8.3) H 09/03/18 23:56 Albumin 4.8 g/dL (3.5-5.0) 09/03/18 23:56 Globulin 4.4 gm/dL (2.2-3.9) H 09/03/18 23:56 Albumin/Globulin Ratio 1.1 (1.0-2.1) 09/03/18 23:56 O2 Sat by Pulse Oximetry: 100 (Room air) Pulse Ox Interpretation: Normal Progress Note: CT head, blood work, EKG, and UA ordered. IV fluids, toradol, and zofran administered. Disposition Counseled Patient/Family Regarding: Diagnosis - Disposition Referrals: at [facility] [Outside] Disposition: HOME/ ROUTINE Disposition Time: 01:10 Condition: STABLE Prescriptions: Amoxicillin [Amoxil 500 mg Cap] 500 mg PO TID #30 cap Desloratadine/Pseudoephedrine [Clarinex-D 12 Hour Tablet] 1 each PO Q12 #14 tbmp.12hr Ibuprofen [Motrin] 1 tab PO TID PRN #30 tab PRN Reason: Pain Instructions: Headache, Adult, Sinusitis, Adult (DC), Sinus Headache (DC) Forms: [facility] (Tajik) - POA Present On Arrival: None - Clinical Impression Clinical Impression: Headache, Sinusitis - Scribe Statement The provider has reviewed the documentation as recorded by the Scribjames Lozano All medical record entries made by the Jacquelineibe were at my direction and personall y dictated by me. I have reviewed the chart and agree that the record accurately reflects my personal performance of the history, physical exam, medical decision making, and the department course for this patient. I have also personally directed, reviewed, and agree with the discharge instructions and disposition.
[2018-09-04] MEDS ORDERED: Potassium Chloride 10 mEq ER Tab PO ONE (01:13)
[2018-09-04 01:36] VITALS: BP 129/85; PULSE 66; TEMP 97.9
--- NOTE | 2018-09-04 08:02 | CT ---
Date of service: 09/04/2018 PROCEDURE: CT HEAD WITHOUT CONTRAST. HISTORY: Headache COMPARISON: 08/08/2015 TECHNIQUE: Axial computed tomography images were obtained through the head/brain without intravenous contrast. Radiation dose: Total exam DLP = 948.8 mGy-cm. This CT exam was performed using one or more of the following dose reduction techniques: Automated exposure control, adjustment of the mA and/or kV according to patient size, and/or use of iterative reconstruction technique. FINDINGS: HEMORRHAGE: No intracranial hemorrhage. BRAIN: No mass effect or edema. No atrophy or chronic microvascular ischemic changes. VENTRICLES: Unremarkable. No hydrocephalus. CALVARIUM: Unremarkable. PARANASAL SINUSES: 1 centimeter mucosal retention cyst and or polyp at the anterior left maxillary sinus. Moderate mucosal thickening of the ethmoid air cells. MASTOID AIR CELLS: Unremarkable as visualized. No inflammatory changes. OTHER FINDINGS: None. IMPRESSION: No acute intracranial abnormality. Sinus mucosal disease. If symptoms persists, consider correlation with MRI. A preliminary report was generated at 12:33 a.m. on 09/04/[address] Elian Lozano from [employer].
--- NOTE | 2018-09-06 16:06 | CARD ---
APPROVED REPORT Date of service: 09/03/2018 EKG Measurement Heart [id number] MD [id number] <Conclusion> Normal sinus rhythm Normal ECG
== END 2018-09-04 01:36 | disposition home or self-care (01) ==
LOC: C.ER 22:53
DX: J32.9 Chronic sinusitis, unspecified (principal); R51 Headache
CPT/HCPCS: 70450; 80053; 85025; 93005; 96361; 96374; 96375; 99285; J1885; J2405; J7030